=== PATIENT | female | born 1985 | race Caucasian/White ===

== ENCOUNTER 2016-10-27 22:53 | Emergency (ER) | payer OTHER ==
[2016-10-27 23:03] VITALS: BP 128/91
[2016-10-28] MEDS ORDERED: DEXAMETHASONE SOD PHOS INJ 10 MG/1 ML VIAL IM ONE (01:38)
--- NOTE | 2016-10-28 01:42 | ER Document Report ---
ED General - General Chief Complaint: Headache Stated Complaint: EAR,NECK AND HEAD PAIN Notes: Patient is a 31-year-old female that comes emergency department with chief complaint of 2 days of worsening pain in her left here, she states that she had a mild sore throat yesterday, she states she has some tenderness in the lymph nodes in her neck on the left side, she states that earlier she had a migraine but she took ibuprofen, tramadol, and Neurontin and this resolved. Patient denies any fevers, denies nausea or vomiting. Past medical history of neck arthritis and frequent headaches reportedly, denies other medical history. Patient reports a menstrual cycle within the past month. TRAVEL OUTSIDE OF THE [place] IN LAST 30 DAYS: No - Related Data Allergies/Adverse Reactions: No Known Allergies Allergy (Verified 10/27/16 23:03) Past Medical History - General Information source: Patient - Social History Smoking Status: Never Smoker Chew tobacco use (# tins/day): No Frequency of alcohol use: Occasional Drug Abuse: None Lives with: Family Family History: Reviewed & Not Pertinent Patient has suicidal ideation: No Patient has homicidal ideation: No Neurological Medical History: Reports: Hx Migraine Renal/ Medical History: Denies: Hx Peritoneal Dialysis Musculoskeltal Medical History: Reports Hx Arthritis Surgical Hx: Negative - Immunizations Hx Diphtheria, Pertussis, Tetanus Vaccination: Yes Review of Systems - Review of Systems Constitutional: No symptoms reported EENT: See HPI Cardiovascular: No symptoms reported Respiratory: No symptoms reported Gastrointestinal: No symptoms reported Genitourinary: No symptoms reported Female Genitourinary: No symptoms reported Musculoskeletal: No symptoms reported Skin: No symptoms reported Hematologic/Lymphatic: No symptoms reported Neurological/Psychological: See HPI Physical Exam - Vital signs Vitals: Temp Pulse Resp BP Pulse Ox 97.7 F 91 16 128/91 H 98 10/27/16 22:57 10/27/16 22:57 10/27/16 22:57 10/27/16 22:57 10/27/16 22:57 Interpretation: Normal - General General appearance: Appears well, Alert In distress: None - HEENT Head: Normocephalic, Atraumatic Eyes: Normal Conjunctiva: Normal Extraocular movements intact: Yes Eyelashes: Normal Pupils: PERRL External canal: Normal Tympanic membrane: Serous effusion - Left-sided Sinus: Normal Nasal: Normal Mouth/Lips: Normal Mucous membranes: Normal Pharynx: Normal Neck: Anterior cervical chain - Left, mild, Posterior cervical chain - Left, mild - Respiratory Respiratory status: No respiratory distress Chest status: Nontender Breath sounds: Normal Chest palpation: Normal - Cardiovascular Rhythm: Regular Heart sounds: Normal auscultation Murmur: No - Abdominal Inspection: Normal Distension: No distension Bowel sounds: Normal Tenderness: Nontender Organomegaly: No organomegaly - Back Back: Normal, Nontender - Extremities General upper extremity: Normal inspection, Nontender, Normal color, Normal ROM , Normal temperature General lower extremity: Normal inspection, Nontender, Normal color, Normal ROM , Normal temperature, Normal weight bearing. No: Darwin's sign - Neurological Neuro grossly intact: Yes Cognition: Normal Orientation: AAOx4 Far[place]ad Coma Scale Eye Opening: Spontaneous [place] Coma Scale Verbal: Oriented Far[place]ad Coma Scale Motor: Obeys Commands Farzad Coma Scale Total: 15 Speech: Normal Motor strength normal: LUE, RUE, LLE, RLE Sensory: Normal - Psychological Associated symptoms: Normal affect, Normal mood - Skin Skin Temperature: Warm Skin Moisture: Dry Skin Color: Normal Course - Re-evaluation Re-evalutation: Patient with the left ear effusion and mild adenopathy on the same side, otherwise completely unremarkable exam, patient states her headache is resolved , patient states she feels good and she wants to go home now. Treated with Decadron, Flonase, Sudafed, discussed primary care follow-up and return precautions. Patient states understanding and agreement. - Vital Signs Vital signs: Temp Pulse Resp BP Pulse Ox 97.7 F 91 16 128/91 H 98 10/27/16 22:57 10/27/16 22:57 10/27/16 22:57 10/27/16 22:57 10/27/16 22:57 Discharge - Discharge Clinical Impression: Left ear pain, Lymphadenopathy Middle ear effusion Qualifiers: Laterality: left Qualified Code(s): H65.92 - Unspecified nonsuppurative otitis media, left ear Condition: Stable Disposition: HOME, SELF-CARE Additional Instructions: Examination is consistent with a middle ear effusion on the left side, tenderness in the lymph nodes, likely either allergic or viral inflammation symptoms. You have been treated with Decadron, I recommend the Sudafed and Flonase in addition to his daily medications, follow-up with primary care for additional management. Department for any concerning or worsening symptoms. Prescriptions: Fluticasone Propionate [Flonase Nasal Stratton 50 Mcg/Stratton 16 gm] 2 sprays NASL Q12 #1 inhaler Pseudoephedrine HCl [Sudafed 12-Hour] 120 mg PO Q12 #20 tablet.sa Referrals: BALDO OLIVAS MD [Primary Care Provider] - Follow up as needed
== END 2016-10-28 01:54 | disposition home or self-care (01) ==
LOC: ER 22:53
DX: R59.1 Generalized enlarged lymph nodes (principal); H92.02 Otalgia, left ear; H65.92 Unspecified nonsuppurative otitis media, left ear; R51 Headache
CPT/HCPCS: 99283; 96372; J1100